=== PATIENT | female | born 2005 | race Caucasian/White ===

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

== ENCOUNTER 2023-04-02 06:54 | Emergency (ER) | payer BC ==
[2023-04-02] MEDS ORDERED: diphenhydrAMINE 50 MG/ML VIAL ONE (07:29)
[2023-04-02] MEDS ORDERED: Metoclopramide HCl 10 MG (2 mL) VIAL ONE (07:30)
[2023-04-02] MEDS ORDERED: Acetaminophen 500 MG TAB ONE (08:25)
== END 2023-04-02 10:14 | disposition home or self-care (01) ==
LOC: CSHERS 06:54
DX: O99.352 Diseases of the nervous system complicating pregnancy, second trimester (principal); G43.909 Migraine, unspecified, not intractable, without status migrainosus; Z3A.26 26 weeks gestation of pregnancy
CPT/HCPCS: 96365; 96375; J1200; J2765

== ENCOUNTER 2023-08-14 02:25 | Emergency (ER) | payer BC ==
[2023-08-14] MEDS ORDERED: Prochlorperazine 10 MG/2 ML VIAL ONE (03:32)
== END 2023-08-14 04:29 | disposition home or self-care (01) ==
LOC: CSHERS 02:25
DX: G43.909 Migraine, unspecified, not intractable, without status migrainosus (principal); F17.290 Nicotine dependence, other tobacco product, uncomplicated
CPT/HCPCS: 96374; J0780

== ENCOUNTER 2023-09-15 18:59 | Emergency (ER) | payer BC ==
[2023-09-15] MEDS ORDERED: diphenhydrAMINE 50 MG/ML VIAL ONE (20:15)
[2023-09-15] MEDS ORDERED: Metoclopramide HCl 10 MG (2 mL) VIAL ONE (20:15)
[2023-09-15] MEDS ORDERED: Ketorolac Tromethamine 30 MG (1 mL) VIAL ONE (20:16)
== END 2023-09-15 21:10 | disposition home or self-care (01) ==
LOC: CSHERS 18:59
DX: G43.909 Migraine, unspecified, not intractable, without status migrainosus (principal); F17.290 Nicotine dependence, other tobacco product, uncomplicated
CPT/HCPCS: 96365; 96375; J1200; J1885; J2765

== ENCOUNTER 2023-12-02 04:19 | Emergency (ER) | payer BC ==
[2023-12-02] MEDS ORDERED: diphenhydrAMINE 50 MG/ML VIAL ONE ×2 (05:12→06:16)
[2023-12-02] MEDS ORDERED: Ketorolac Tromethamine 30 MG (1 mL) VIAL ONE (05:12)
[2023-12-02] MEDS ORDERED: Prochlorperazine 10 MG/2 ML VIAL ONE (05:12)
[2023-12-02 05:21] LABS: #Eosinphils 0.17 10x3/uL (0.0-0.5); #Monocytes 0.25 10x3/uL (0.0-1.1); #Neutrophils 2.76 10x3/uL (1.5-8.4); %Basophils 1.7 % (0.0-2.0); %Lymphocytes 42.5 % (18.0-47.0); %Monocytes 4.4 % (0.0-10.0); %Neutrophils 48.2 % (40.0-75.0); Hematocrit 36.2 % (34.9-44.5); Mean Corpuscular HGB CONC 33.1 g/dL (32.0-36.0); Mean Corpuscular Hemoglobin 27.1 pg (27.0-33.0); Mean Corpuscular Volume 81.7 fL (81.6-98.3); Mean Platelet Volume 10.5 fL (7.4-10.4); Platelet Count 321 10x3/uL (150-450); RBC Distribution Width 13.8 % (11.5-14.5); Red Blood Cell (RBC) Count 4.43 10x6/uL (3.90-5.03); White Blood Cell (WBC) Count 5.7 10x3/uL (3.5-10.5)
[2023-12-02 05:31] LABS: Anion Gap 12 mmol/L (10-20); BUN (Urea Nitrogen) 9 mg/dL (8.4-21.0); Calc. Creatinine Clearance 0 mL/min (70-130); Calcium 9.3 mg/dL (7.8-10.44); Carbon Dioxide 18 mmol/L (22-29); Chloride 114 mmol/L (98-107); Estimated GFR 116; Glucose 92 mg/dL (70-105); Potassium 3.6 mmol/L (3.5-5.1); Sodium 140 mmol/L (136-145)
[2023-12-02] MEDS ORDERED: Metoclopramide HCl 10 MG (2 mL) VIAL ONE (06:16)
== END 2023-12-02 08:04 | disposition home or self-care (01) ==
LOC: CSHERS 04:19
DX: G43.909 Migraine, unspecified, not intractable, without status migrainosus (principal); F17.290 Nicotine dependence, other tobacco product, uncomplicated; Z79.899 Other long term (current) drug therapy
CPT/HCPCS: 80048; 85025; 96374; 96375; 96376; J0780; J1200; J1885; J2765

== ENCOUNTER 2024-02-25 09:52 | Emergency (ER) | payer BC, OTHER ==
[2024-02-25] MEDS ORDERED: diphenhydrAMINE 50 MG/ML VIAL ONE (11:00)
[2024-02-25] MEDS ORDERED: Ketorolac Tromethamine 30 MG (1 mL) VIAL ONE (11:01)
[2024-02-25] MEDS ORDERED: Prochlorperazine 10 MG/2 ML VIAL ONE (11:01)
== END 2024-02-25 12:46 | disposition home or self-care (01) ==
LOC: CSHERS 09:52
DX: G43.909 Migraine, unspecified, not intractable, without status migrainosus (principal); F17.290 Nicotine dependence, other tobacco product, uncomplicated
CPT/HCPCS: 96361; 96374; 96375; J0780; J1200; J1885

== ENCOUNTER 2024-02-26 07:39 | Emergency (ER) | payer BC ==
[2024-02-26] MEDS ORDERED: Ketorolac Tromethamine 30 MG (1 mL) VIAL ONE (08:15)
[2024-02-26] MEDS ORDERED: Prochlorperazine 10 MG/2 ML VIAL ONE (08:15)
[2024-02-26] MEDS ORDERED: diphenhydrAMINE 50 MG/ML VIAL ONE (08:15)
== END 2024-02-26 09:49 | disposition home or self-care (01) ==
LOC: CSHERS 07:39
DX: G43.909 Migraine, unspecified, not intractable, without status migrainosus (principal); F17.290 Nicotine dependence, other tobacco product, uncomplicated
CPT/HCPCS: J0780; J1200; J1885

== ENCOUNTER 2024-02-26 17:09 | Emergency (ER) | payer BC ==
[2024-02-26] MEDS ORDERED: diphenhydrAMINE 50 MG/ML VIAL ONE ×2 (17:53→18:40)
== END 2024-02-26 20:12 | disposition home or self-care (01) ==
LOC: CSHERS 17:09
DX: G24.09 Other drug induced dystonia (principal); F17.290 Nicotine dependence, other tobacco product, uncomplicated
CPT/HCPCS: 96374; 96375; J0780; J1200; J1885

== ENCOUNTER 2024-11-24 18:00 | Inpatient (IN) | payer BC ==
[~2024-11-24 18:00] MED LIST: Bupivacaine 0.25% HCL 30 ML VIAL ONE
[2024-11-24 20:42] VITALS: BMI 24.7
[2024-11-24] MEDS ORDERED: Lidocaine 1% (PF) 30 ML VIAL SC PRN (21:18)
[2024-11-24] MEDS ORDERED: hydrALAZINE 20 MG/ML VIAL SLOW IVP PRN (21:18)
[2024-11-24] MEDS ORDERED: HYDROcodone/Acetaminophen 5/325 mg Tablet PO PRN (21:18)
[2024-11-24] MEDS ORDERED: Diphenoxylate HCl/Atropine Tablet PO PRN (21:18)
[2024-11-24] MEDS ORDERED: Ondansetron PF 4 MG/2 ML Vial IVP PRN (21:18)
[2024-11-24] MEDS ORDERED: Carboprost 250 MCG/ML AMP IM PRN (21:18)
[2024-11-24] MEDS ORDERED: Ibuprofen 800 MG TAB PO PRN (21:18)
[2024-11-24] MEDS ORDERED: Acetaminophen 500 MG TAB PO PRN (21:18)
[2024-11-24] MEDS ORDERED: Methylergonovine 0.2 MG/ML VIAL IM PRN (21:18)
[2024-11-24 21:29] LABS: Hematocrit 26.3 % (34.9-44.5); Hemoglobin 8.3 g/dL (12.0-15.5); Mean Corpuscular Hemoglobin 23.1 pg (27.0-33.0); Mean Corpuscular Volume 73.1 fL (81.6-98.3); Platelet Count 301 10x3/uL (150-450); Red Blood Cell (RBC) Count 3.60 10x6/uL (3.90-5.03); White Blood Cell (WBC) Count 14.79 10x3/uL (3.5-10.5)
[2024-11-24] MEDS ORDERED: Oxytocin 30 units/NS 500 ML 500 ML IV SCH (21:30)
[2024-11-24] MEDS: Penicillin G Potassium 5 MILL.UNITS in Sodium Chloride 0.9% 100 ML IVPB SCH (21:36)
[2024-11-24 22:30] LABS: Hep B Surf Ag - L&D Non-Reactive S/CO (NonReactive)
[2024-11-24 22:33] LABS: Syphilis Antibody Index 0.35 S/CO (<1.00 Non-Reactive)
[2024-11-25] MEDS: Penicillin G 2.5 MILL.units 2.5 MILL.UNITS in Premix 1 BAG IVPB SCH (01:58)
[2024-11-25] MEDS: fentaNYL/Ropivacaine Epidural 100 ML ONE (07:02)
[2024-11-25] MEDS ORDERED: Acetaminophen 325 MG TAB PO PRN (07:07)
[2024-11-25] MEDS ORDERED: Ondansetron PF 4 MG/2 ML Vial IVP PRN ×2 (07:07→12:20)
[2024-11-25] MEDS ORDERED: diphenhydrAMINE 50 MG/ML VIAL IVP PRN (07:07)
[2024-11-25] MEDS ORDERED: fentaNYL 2 mcg/Ropivacaine 0.2% Epidural 100 ML CADD EPIDURAL SCH (07:15)
[2024-11-25] MEDS ORDERED: Communication Order-Pharmacy FS SCH (07:15)
[2024-11-25] MEDS: Oxytocin 30 units/NS 500 ML 500 ML IV SCH (08:50)
[2024-11-25 09:07] LABS: Analyzer IN Cardio CS NICU; RapidComm Collect By L& D Nurse; pH (Cord, venous) 7.359 (7.250-7.350)
[2024-11-25 09:08] LABS: Analyzer IN Cardio CS NICU; RapidComm Collect By L&D Nurse
[2024-11-25] MEDS ORDERED: Bisacodyl 10 MG SUPP PR PRN (12:20)
[2024-11-25] MEDS ORDERED: Milk Of Magnesia 30 ML UDCUP PO PRN (12:20)
[2024-11-25] MEDS ORDERED: Preparation H Ointment 28 GM TUBE PR PRN (12:20)
[2024-11-25] MEDS ORDERED: hydrALAZINE 20 MG/ML VIAL SLOW IVP PRN (12:20)
[2024-11-25] MEDS ORDERED: diphenhydrAMINE 25 MG CAP PO PRN (12:20)
[2024-11-25] MEDS ORDERED: Lanolin Ointment 7 GM TUBE TOP PRN (12:20)
[2024-11-25] MEDS ORDERED: HYDROcodone/Acetaminophen 5/325 mg Tablet PO PRN (12:20)
[2024-11-25] MEDS ORDERED: Benzocaine-Menthol 82.5 ML CAN TOP PRN (12:20)
[2024-11-25] MEDS: Boostrix 0.5 ML (Tdap) VIAL (>/=7 yrs of age) IM ONE (12:32)
[2024-11-25] MEDS: Ibuprofen 800 MG TAB PO SCH (14:24)
[2024-11-25] MEDS: Ferrous Sulfate 325 MG TAB PO SCH ×2 (17:40→21:41)
[2024-11-25] MEDS ORDERED: Ferrous Sulfate 325 MG TAB PO SCH (18:00)
[2024-11-26 08:03] VITALS: BP 116/66; TEMP 98.1
== END 2024-11-26 11:55 | disposition home or self-care (01) | DRG 807 ==
LOC: CSHLD 19:43 → CSHPP 11-25 11:20
PROVIDERS: ADMIT Student in an Organized Health Care Education/Training Program; ATTEND Student in an Organized Health Care Education/Training Program
PROC: 10E0XZZ Delivery of Products of Conception, External Approach (ICD-10-PCS; principal; 2024-11-25)
PROC: 4A1HXCZ Monitoring of Products of Conception, Cardiac Rate, External Approach (ICD-10-PCS; 2024-11-25)
PROC: 3E0DXGC Introduction of Other Therapeutic Substance into Mouth and Pharynx, External Approach (ICD-10-PCS; 2024-11-25)
DX: O99.824 Streptococcus B carrier state complicating childbirth (principal); Z37.0 Single live birth; O76 Abnormality in fetal heart rate and rhythm complicating labor and delivery; O99.02 Anemia complicating childbirth; D50.9 Iron deficiency anemia, unspecified; Z3A.39 39 weeks gestation of pregnancy; Z79.899 Other long term (current) drug therapy
CPT/HCPCS: 51702; 82805; 85027; 86780; 86850; 86900; 86901; 87340; J0595; J0665; J2540; J2590; J7120